=== PATIENT | female | born 1950 | race Caucasian/White ===

== ENCOUNTER → 2018-11-26 | Outpatient (CLI) | payer MEDICARE, OTHER ==
[2018-11-27 14:56] LABS: Stool Occult Bld Immuno 1 Negative (NEGATIVE); Stool Occult Bld Immuno 2 Negative (NEGATIVE)
== END | disposition home or self-care (01) ==
LOC: LAB EV 11:16
PROVIDERS: Internal Medicine Gastroenterology
DX: Z12.11 Encounter for screening for malignant neoplasm of colon (principal)
CPT/HCPCS: 82274

== ENCOUNTER 2019-10-18 12:40 | Day surgery (SDC) | payer MEDICARE, OTHER ==
[~2019-10-18] VITALS: Ht 157.5 cm; Wt 91.4 kg
[~2019-10-18 12:40] MED LIST: ASCO500 PO; B-COMPLEX WITH1 EAC2; ECHINACEA-GOLD450 MG; ERGO400; FAMO40 PO; FERROUS GLUCON324 M3 PO; Hair, Skin & N1 EACH PO
--- NOTE | 2019-10-18 15:20 | NUR ---
10/18/19 1520 Ledy Velazquez VITALS STABLE THROUGHOUT CASE, MONITOR GOT ACCIDENTALLY CLEARED PRIOR TO PRINTING VITALS STRIP.
== END 2019-10-18 15:20 | disposition home or self-care (01) ==
LOC: ORSCSDS 12:40
PROVIDERS: Internal Medicine Gastroenterology
PROC: 0DB98ZX Excision of Duodenum, Via Natural or Artificial Opening Endoscopic, Diagnostic (ICD-10-PCS; principal; 2019-10-18 14:15)
PROC: 0DJD8ZZ Inspection of Lower Intestinal Tract, Via Natural or Artificial Opening Endoscopic (ICD-10-PCS; principal; 2019-10-18 14:15)
PROC: 0DB48ZX Excision of Esophagogastric Junction, Via Natural or Artificial Opening Endoscopic, Diagnostic (ICD-10-PCS; principal; 2019-10-18 14:15)
DX: D50.9 Iron deficiency anemia, unspecified (principal); K21.9 Gastro-esophageal reflux disease without esophagitis; K29.80 Duodenitis without bleeding; K92.1 Melena; K22.2 Esophageal obstruction; K57.30 Diverticulosis of large intestine without perforation or abscess without bleeding; E78.5 Hyperlipidemia, unspecified; Z79.899 Other long term (current) drug therapy
CPT/HCPCS: 88305; 88312; J2704; J7120

== ENCOUNTER → 2019-12-07 | Outpatient (CLI) | payer MEDICARE, OTHER ==
[2019-12-09 14:44] LABS: Stool Occult Bld Immuno 1 Negative (NEGATIVE); Stool Occult Bld Immuno 2 Negative (NEGATIVE)
== END | disposition home or self-care (01) ==
LOC: LAB EV 16:16 → LAB SHORT 16:16
PROVIDERS: Internal Medicine Gastroenterology
DX: D50.9 Iron deficiency anemia, unspecified (principal)
CPT/HCPCS: 82274

== ENCOUNTER 2024-01-20 08:48 | Day surgery (SDC) | payer OTHER ==
[~2024-01-20] VITALS: Ht 157.5 cm; Wt 82.8 kg
[2024-01-20] VITALS (11 sets, daily range): BP systolic 93–139; BP diastolic 41–68
[~2024-01-20 08:48] MED LIST changes: +ACET500 PO; +ASPI81CH PO; +ATOR10 PO; +Acetaminophen 500 MG Tab PO SCH; +CeFAZolin Sodium 2,000 MG in NS 100 ML IV SCH; +Chlorhexidine Mouth Care 15 ML UDC MT SCH; +Lactated Ringer's 1,000 ML IV SCH; +OxyCODONE HCL 10 MG TABCR PO SCH; +Prinivil10 MG PO; +Ropivacaine 0.5% HCl/Pf 123.125 MG,EPINEPHrine HCL 0.25 MG,Ketorolac Tromethamine 15 MG... INFIL SCH; +Tranexamic Acid 100 ML IV SCH; +VITAMIN D310 MC4 PO
[2024-01-20] MEDS ORDERED: OMEP20ER PO (09:02)
[2024-01-20] MEDS ORDERED: propofoL 20 ML IV ONE ×2 (09:02→11:56)
--- NOTE | 2024-01-20 09:24 | NUR ---
Ambulatory in Day Surgery. History, Chart, Medications and Allergies reviewed before start of procedure. Lungs clear T/O to Auscultation. Patient confirms NPO status and agrees with scheduled surgery. Pre-Op teaching done. Pt verbalizes understanding. PT BELONGINGS PLACED UNDERNEATH GURNEY FOR SAFEKEEPING.
[2024-01-20] MEDS ORDERED: Bupivacaine 0.75%/Dext 8.25% 2 ML Amp IT ONE (10:00)
[2024-01-20] MEDS ORDERED: propofoL 50 ML IV ONE (10:00)
[2024-01-20] MEDS ORDERED: Phenylephrine HCl 10mg/ml 1 ml Vial ONE (11:26)
[2024-01-20] MEDS ORDERED: ePHEDrine Sulfate 50 MG/ML 1ML Injection ONE (11:39)
[2024-01-20] MEDS ORDERED: Bisacodyl 10 MG Supp PR PRN (12:35)
[2024-01-20] MEDS ORDERED: OxyCODONE HCL 5 MG TAB PO PRN ×2 (12:35→12:40)
[2024-01-20] MEDS ORDERED: Promethazine HCl 25 MG Tab PO PRN (12:40)
[2024-01-20] MEDS ORDERED: Magnesium Hydroxide Conc 10 ML UDC PO PRN (12:40)
[2024-01-20] MEDS ORDERED: Ondansetron HCl 2 MG / ML 2ML Vial IV PRN (12:40)
[2024-01-20] MEDS ORDERED: Lactated Ringer's 1,000 ML IV SCH (12:40)
[2024-01-20] MEDS ORDERED: Metoclopramide HCl 5MG / ML 2ML Vial IV PRN (12:45)
[2024-01-20] MEDS ORDERED: HYDROmorphone HCl/Pf 1MG SYR IV PRN (12:45)
[2024-01-20] MEDS ORDERED: FLU VACC TS2024-25(6MOS UP)/PF 45 MCG/0.5 ML SYRINGE IM PRN (12:45)
[2024-01-20] MEDS ORDERED: DiphenhydrAMINE HCL 25 MG Cap PO PRN (12:45)
--- NOTE | 2024-01-20 13:15 | NUR ---
ARRIVAL TO UNIT PATIENT TRANSFERRED FROM PACU AT APPROX 1300. PATIENT ALERT AND ORIENTED X4. COMMUNICATING NEEDS EFFECTIVELY. S/P R TKA W/ SPINAL - UNABLE TO WIGGLE TOES BUT IS BEGINNING TO REPORT TINGLING TO BLE. DENIES PAIN. NO SHADOWING NOTED TO DERIC WRAP - COOLING DEVICE IN PLACE. TOLERATING PO INTAKE. ON ROOM AIR, SATs >90%. RR EVEN, UNLABORED. SOFT BP, SBP 90s. IVF INFUSING PER EMAR. CALL LIGHT IN REACH.
--- NOTE | 2024-01-20 15:35 | NUR ---
Pt. is awake in bed and welcomes my visit. Pt. identifies as a woman of edith soon into my visit. fciliated a life review Pt. displayed evidence of awareness and engagement. Prayed with Pt. Pt. verbalized gratitude for the spiritual care visit.
--- NOTE | 2024-01-20 15:58 | NUR ---
TRANSFER OF CARE NO ACUTE CHANGES SINCE PREVIOUS DOCUMENTATION. VSS. PATIENT REMAINS ON ROOM AIR, SATs >90%. RR EVEN, UNLABORED. BP IMPROVED, SBP 120s-130s. IS GAINING SENSATION TO BLE - ABLE TO WIGGLE TOES AND LIFT R KNEE ABOVE BED FOR A SMALL PERIOD OF TIME. REPORTS 1/ PAIN TO R KNEE - MEDICATED PER EMAR WITH SCHEDULED PO TYLENOL. DRESSING REMAINS C/D/I - NO SHADOWING NOTED. COOLING DEVICE IN PLACE. VOIDING. TOLERATING PO INTAKE. CALL LIGHT IN REACH. REPORT GIVEN TO RACIEL TO ASSUME CARE AT THIS TIME.
[2024-01-20] MEDS ORDERED: Acetaminophen 500 MG Tab PO SCH (16:00)
--- NOTE | 2024-01-20 17:25 | NUR ---
CARE ASSUMED OF PT AT 1600. PAIN MANAGED. PT ALERT/ORIENTED. R KNEE INCISION SITE WNL, SPINAL SITE WNL.
[2024-01-20] MEDS ORDERED: Ketorolac Tromethamine 15mg Vial IV SCH (18:00)
--- NOTE | 2024-01-20 18:02 | NUR ---
SHIFT SUMMARY PT HAS BEEN OOB WITH THERAPY AND SITTING UP TO THE CHAIR. PT STILL REPORTS THAT HER R LEG FEELS HEAVY, SHE WAS ABLE TO WALK A SHORT DISTANCE WITH THERAPY. PT TOLERATING PO, SHE HAS BEEN ABLE TO VOID, PAIN MANAGED. PT USES CALL LIGHT APPROPRIATELY.
[2024-01-20] MEDS ORDERED: CeFAZolin Sodium 2,000 MG in NS 100 ML IV SCH (20:00)
[2024-01-20] MEDS ORDERED: Atorvastatin 10 MG Tab PO SCH (21:00)
[2024-01-20] MEDS ORDERED: Docusate Sodium 100 MG Cap PO SCH (21:00)
[2024-01-21 04:41] VITALS: BP 137/62
--- NOTE | 2024-01-21 04:53 | NUR ---
SHIFT SUMMARY POD 1 R TKA PT ABLE TO REST DURING THE NIGHT. TOLERATING PO INTAKE, VOIDING. PAIN MANAGED PER EMAR. DRESSING OF DERIC AND AQUACEL TO R KNEE IS C/D/I. PT SBA WITH FWW AND GB. PT DRESSING IND THIS AM AND UP IN CHAIR. VSS. PLAN TO HAVE THERAPY AND THEN D/C HOME. NO OTHER CONCERNS AT THIS TIME, CALL LIGHT WITHIN REACH
[2024-01-21] MEDS ORDERED: Omeprazole 20 MG CapCR PO SCH (06:00)
[2024-01-21 06:10] LABS: BASOPHILS ABSOLUTE AUTO 0.01 K/mm3 (0.00-0.23); BASOPHILS PERCENT AUTO 0 % (0-2); EOSINOPHILS PERCENT AUTO 0 % (0-6); Hematocrit 35.4 % (33.0-51.0); Hemoglobin 11.8 g/dL (11.5-16.0); IMMATURE GRAN ABSOLUTE AUTO 0.05 K/mm3 (0.00-0.10); IMMATURE GRAN PERCENT AUTO 0 % (0-1); LYMPHOCYTES ABSOLUTE AUTO 1.43 K/mm3 (0.84-5.20); LYMPHOCYTES PERCENT AUTO 11 % (21-46); MONOCYTES ABSOLUTE AUTO 1.12 K/mm3 (0.16-1.47); MONOCYTES PERCENT AUTO 8 % (4-13); Mean Corpuscular HGB 29.6 pg (26.0-34.0); Mean Corpuscular HGB Conc 33.3 g/dL (31.5-36.5); Mean Corpuscular Volume 89 fL (80-100); Mean Platelet Volume 10.8 fL (9.1-12.4); NEUTROPHILS ABSOLUTE AUTO 10.99 K/mm3 (1.96-9.15); NEUTROPHILS PERCENT AUTO 81 % (41-73); Platelet Count 267 K/mm3 (150-400); RDW Standard Deviation 42.6 fL (35.1-46.3); Red Blood Cell Count 3.98 M/mm3 (3.80-5.20)
[2024-01-21 06:43] LABS: Bun/Creatinine Ratio 24.4 (12.0-20.0); Calcium, Blood 8.9 mg/dL (8.5-10.1); Creatinine, Blood 0.66 mg/dL (0.40-1.00); Potassium, Blood 4.3 mmol/L (3.5-5.5)
[2024-01-21 07:38] VITALS: BP 118/69
[2024-01-21] MEDS ORDERED: ASPI81CH PO (08:32)
[2024-01-21] MEDS ORDERED: Multivitamins/Minerals TAB PO SCH (09:00)
[2024-01-21] MEDS ORDERED: Cholecalciferol 1000 Unit Tablet (=25MCG) PO SCH (09:00)
[2024-01-21] MEDS ORDERED: Aspirin 81 MG Chew PO SCH (09:00)
[2024-01-21] MEDS ORDERED: Lisinopril 10 MG Tab PO SCH (09:00)
--- NOTE | 2024-01-21 10:16 | NUR ---
DISCHARGE NOTE PATIENT CLEARED BY PHYSICAL THERAPY FOR DC HOME - PATIENT UP WITH 1P ASSIST [place]. VSS. ON ROOM AIR, SATs >90%. RR EVEN, UNLABORED. POD 1 R TKA - AQUACEL AND DERIC WRAP DRESSING C/D/I. COOLING DEVICE IN PLACE - WITH PATIENT AT DC. PAIN TOLERABLE WITH PRESCRIBED MEDICATION. TOLERATING PO INTAKE. VOIDING. PATIENT RECEPTIVE TO DISCHARGE EDUCATION - STATES UNDERSTANDING. IV REMOVED. PERSONAL BELONGINGS WITH PATIENT. PATIENT TRANSFERRED TO PERSONAL VEHICLE VIA WHEELCHAIR AT APPROX 1010.
== END 2024-01-21 10:10 | disposition home or self-care (01) ==
LOC: ORSCMMR 08:48 → ORD 10:00 → SURS 13:00 → ORSCMMR 01-21 10:10
PROVIDERS: Orthopaedic Surgery
PROC: 0SRC0JA Replacement of Right Knee Joint with Synthetic Substitute, Uncemented, Open Approach (ICD-10-PCS; principal; 2024-01-20 10:00)
DX: M17.11 Unilateral primary osteoarthritis, right knee (principal); I10 Essential (primary) hypertension; E78.00 Pure hypercholesterolemia, unspecified; K21.9 Gastro-esophageal reflux disease without esophagitis; E66.9 Obesity, unspecified; Z68.33 Body mass index [BMI] 33.0-33.9, adult; Z79.899 Other long term (current) drug therapy; Z87.891 Personal history of nicotine dependence
CPT/HCPCS: 36415; 73560-RT; 80048; 85025; 97110; 97116; 97161; A9270; C1776; J0171; J0690; J0735; J1885; J2371; J2704; J2795; J7120